=== PATIENT | female | born 1995 | race African-American/Black ===

== ENCOUNTER 2016-11-09 19:35 | Emergency (ER) | payer OTHER | END 2016-11-09 19:36 | disposition home or self-care (01) | LOC: SED 19:35 | DX: M54.5 Low back pain (principal) | CPT/HCPCS: 99282 ==

== ENCOUNTER 2016-12-17 16:43 | Emergency (ER) | payer OTHER ==
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
== END 2016-12-17 17:56 | disposition home or self-care (01) ==
LOC: SED 16:43
DX: S90.32XA Contusion of left foot, initial encounter (principal); X58.XXXA Exposure to other specified factors, initial encounter
CPT/HCPCS: 29515; 73630; 99283